=== PATIENT | male | born 1970 | race Caucasian/White ===

== ENCOUNTER 2019-09-07 15:40 | Outpatient (CLI) | payer OTHER ==
[~2019-09-07] VITALS: Ht 167 cm; Wt 79.5 kg
[~2019-09-07 15:40] MED LIST: MULT-178 PO; NAPR250T6 PO; OMEP20TA7 PO
== END 2019-09-07 15:55 ==
LOC: PREOP 15:40
PROVIDERS: ATTEND Internal Medicine
DX: Z01.818 Encounter for other preprocedural examination (principal)

== ENCOUNTER → 2022-03-18 | Outpatient (CLI) | payer OTHER ==
[~2022-03-18] MED LIST changes: +NAPR-1088 PO; -NAPR250T6 PO; +OMEP20TA56 PO; -OMEP20TA7 PO
--- NOTE | 2022-03-18 10:04 | Diagnostic Imaging Report ---
INDICATION: Localized edema COMPARISON: None TECHNIQUE: Duplex, vazquez-scale and color-flow imaging of the right lower extremity venous system was performed. FINDINGS: The common femoral vein, superficial femoral vein, profunda femoris, and popliteal veins are normal. These vessels show normal compressibility, color flow, and doppler augmentation. The deep calf veins, although not very well seen, demonstrate no distinct intraluminal thrombus. IMPRESSION: Negative venous Doppler of the right lower extremity. Dictated by: Dictated on workstation # [id number]
== END ==
LOC: RAD 08:55
PROVIDERS: ATTEND Nurse Practitioner Family
DX: M25.461 Effusion, right knee (principal); R60.0 Localized edema; L03.115 Cellulitis of right lower limb; K21.9 Gastro-esophageal reflux disease without esophagitis; M25.561 Pain in right knee; M79.604 Pain in right leg